=== PATIENT | female | born 1995 | race American Indian/Alaskan Native ===

== ENCOUNTER 2017-12-11 14:39 | Emergency (ER) | payer SELFPAY ==
[2017-12-11 14:58] VITALS: BP 121/78
[2017-12-11 15:20] LABS: HCG Qualitative,Urine Negative (Negative)
[2017-12-11 15:22] LABS: Bilirubin,Urine NEG (Negative); Blood,Urine NEG (Negative); Color,Urine Yellow (Yellow); Mucus,Urine 3+ /HPF; Protein,Urine <15 mg/dL mg/dL (Negative); Urobilinogen,Urine < 2.0 mg/dL (<2.0)
== END 2017-12-11 17:25 | disposition left against medical advice (07) ==
LOC: ED 14:39
DX: N93.9 Abnormal uterine and vaginal bleeding, unspecified (principal); Z53.21 Procedure and treatment not carried out due to patient leaving prior to being seen by health care provider
CPT/HCPCS: 81001; 81025

== ENCOUNTER 2019-10-28 01:55 | Emergency (ER) | payer SELFPAY ==
[2019-10-28] MEDS ORDERED: FAMOTIDINE 20 MG/2 ML INJ IV ONE (03:15)
[2019-10-28] MEDS ORDERED: MORPHINE 2 MG/1 ML INJ IV ONE (03:15)
[2019-10-28] MEDS ORDERED: ONDANSETRON 4 MG/2 ML INJ IV ONE ×2 (03:15→05:50)
[2019-10-28] MEDS ORDERED: SODIUM CHLORIDE 0.9% 1000 ML 1,000 ML IV ONE (03:16)
--- NOTE | 2019-10-28 03:47 | Emergency Department Report ---
ED Abdominal Pain HPI - General Chief Complaint: Abdominal Pain Stated Complaint: SEVERE ABDOMINAL PAIN/HEAVY DISCHARGE/SOB Source: patient Mode of arrival: Ambulatory Limitations: No Limitations - History of Present Illness Initial Comments: Patient is a A0 23-year-old -[place] female with no past medical history who presents to the ED with complaint of acute onset persistent diffuse abdominal pain for the last 1 week with nausea and which is worsened in the last 2 days. Patient states that in the last 6 hours she could not sleep because of persistent diffuse abdominal pain. Patient also complains of vaginal discharge and urinary frequency and urgency. Patient denies dizziness, syncope, diarrhea, vomiting, fever, chills, cough, sore throat, vaginal bleeding, dyspareunia, low back pain, chest pain or shortness of breath. MD Complaint: abdominal pain, other (Nausea ) -: Sudden, week(s) (1) Location: diffuse Radiation: none Migration to: no migration Severity: severe Severity scale (0 -10): 8 Quality: cramping, aching, sharp Consistency: constant Improves With: nothing Worsens With: nothing Associated Symptoms: denies other symptoms, nausea, anorexia - Related Data LMP (females 10-50): this week Previous Rx's Medication Instructions Recorded Last Taken Type Acetaminophen/Codeine [Tylenol 1 tab PO Q6H PRN #12 tab 10/28/19 Unknown Rx /Codeine # 3 tab] Doxycycline Hyclate 100 mg PO Q12H #20 tablet. 10/28/19 Unknown Rx Fluconazole (Nf) [Diflucan TAB] 150 mg PO ONCE #2 tablet 10/28/19 Unknown Rx Ketorolac [Toradol] 10 mg PO Q8H PRN #20 tablet 10/28/19 Unknown Rx Ondansetron [Zofran Odt] 4 mg PO Q6HR PRN #20 tab.rapdis 10/28/19 Unknown Rx cephALEXin [Keflex] 500 mg PO Q8HR #30 cap 10/28/19 Unknown Rx metroNIDAZOLE [Flagyl] 500 mg PO Q12HR #20 tab 10/28/19 Unknown Rx Allergies Allergy/AdvReac Type Severity Reaction Status Date / Time coconut oil Allergy Itching Verified 02/19/19 16:08 ED Review of Systems ROS: Stated complaint: SEVERE ABDOMINAL PAIN/HEAVY DISCHARGE/SOB Other details as noted in HPI Constitutional: denies: chills, fever Eyes: denies: eye pain, eye discharge, vision change ENT: denies: ear pain, throat pain Respiratory: denies: cough, shortness of breath, wheezing Cardiovascular: denies: chest pain, palpitations Endocrine: no symptoms reported Gastrointestinal: abdominal pain, nausea. denies: diarrhea Genitourinary: denies: urgency, dysuria, discharge Musculoskeletal: denies: back pain, joint swelling, arthralgia Skin: denies: rash, lesions Neurological: denies: headache, weakness, paresthesias Psychiatric: denies: anxiety, depression Hematological/Lymphatic: denies: easy bleeding, easy bruising ED Past Medical Hx - Past Medical History Previous Medical History?: No Hx Hypertension: No Hx Congestive Heart Failure: No Hx Diabetes: No Hx Deep Vein Thrombosis: No Hx Renal Disease: No Hx Sickle Cell Disease: No Hx Seizures: No Hx Asthma: No Hx COPD: No - Surgical History Past Surgical History?: No - Social History Smoking Status: Never Smoker Substance Use Type: Alcohol - Medications Home Medications: Home Medications Medication Instructions Recorded Confirmed Last Taken Type Acetaminophen/Codeine [Tylenol 1 tab PO Q6H PRN #12 tab 10/28/19 Unknown Rx /Codeine # 3 tab] Doxycycline Hyclate 100 mg PO Q12H #20 tablet. 10/28/19 Unknown Rx Fluconazole (Nf) [Diflucan TAB] 150 mg PO ONCE #2 tablet 10/28/19 Unknown Rx Ketorolac [Toradol] 10 mg PO Q8H PRN #20 tablet 10/28/19 Unknown Rx Ondansetron [Zofran Odt] 4 mg PO Q6HR PRN #20 tab.rapdis 10/28/19 Unknown Rx cephALEXin [Keflex] 500 mg PO Q8HR #30 cap 10/28/19 Unknown Rx metroNIDAZOLE [Flagyl] 500 mg PO Q12HR #20 tab 10/28/19 Unknown Rx ED Physical Exam - General Limitations: No Limitations General appearance: alert, in no apparent distress - Head Head exam: Present: atraumatic, normocephalic, normal inspection - Eye Eye exam: Present: normal appearance, PERRL, EOMI Pupils: Present: normal accommodation - ENT ENT exam: Present: normal exam, normal orophraynx, mucous membranes moist, TM's normal bilaterally, normal external ear exam - Neck Neck exam: Present: normal inspection, full ROM. Absent: tenderness - Respiratory Respiratory exam: Present: normal lung sounds bilaterally. Absent: respiratory distress, wheezes, rales, chest wall tenderness, accessory muscle use - Cardiovascular Cardiovascular Exam: Present: regular rate, normal rhythm, normal heart sounds. Absent: systolic murmur, diastolic murmur, rubs, gallop - GI/Abdominal GI/Abdominal exam: Present: soft, tenderness (Palpable diffuse abdominal tenderness with no guarding or rebound), normal bowel sounds. Absent: guarding, rebound, hyperactive bowel sounds - Extremities Exam Extremities exam: Present: normal inspection, full ROM, normal capillary refill - Back Exam Back exam: Present: normal inspection, full ROM. Absent: tenderness, CVA tenderness (R), muscle spasm, paraspinal tenderness, vertebral tenderness - Neurological Exam Neurological exam: Present: alert, oriented X3, CN II-XII intact, normal gait, reflexes normal - Psychiatric Psychiatric exam: Present: normal affect, normal mood - Skin Skin exam: Present: warm, dry, intact, normal color. Absent: rash ED Course Vital Signs 10/28/19 10/28/19 03:51 04:21 Respiratory 16 16 Rate ED Medical Decision Making - Lab Data Result diagrams: 10/28/19 03:30 10/28/19 03:30 - Radiology Data Radiology results: report reviewed, [place] [address] Cat Scan Report Signed Patient: CECI BUSTILLO MR#: [id number] : 1995 Acct:[id number] Age/Sex: 23 / F ADM Date: 10/28/19 Loc: ED Attending Dr: Ordering Physician: CORY ZABALA Date of Service: 10/28/19 Procedure(s): CT abdomen pelvis w con Accession Number(s): [id number] cc: CORY ZABALA CT ABDOMEN AND PELVIS WITH IV CONTRAST INDICATION: Pt complains of GENERALIZED abdominal pain.. COMPARISON: None available. TECHNIQUE: Axial CT images were obtained through the abdomen and pelvis after 100 mL IV contrast. All CT scans at this location are performed using CT dose reduction for ALARA by means of automated exposure control. FINDINGS -- ABDOMEN: Lung Bases: Ill-defined densities within the left lower lung. Liver: Normal. Gallbladder: Normal. Bile Ducts: Normal. Pancreas: Normal. Spleen: Normal. Adrenals: Normal. Right Kidney and Proximal Ureter: Normal. Left Kidney and Proximal Ureter: Normal. Stomach and Bowel: Normal. Lymph Nodes: No significant adenopathy. Aorta: No significant abnormality. IVC: Normal. Additional Findings: None. FINDINGS -- PELVIS: Urinary Bladder and Distal Ureters: Significant urinary bladder wall thickening.. Reproductive Organs: 3 x 2 cm cyst arising from the left ovary.. Appendix: Normal. Bowel: No acute abnormality. Free Fluid: Small free pelvic fluid.. Lymph Nodes: No significant adenopathy. Additional Findings: None. Skeletal System: No acute abnormality. IMPRESSION: 1. Significant urinary bladder wall thickening is suspicious for possible underlying cystitis 2. 3 x 2 cm mildly complex cyst arising from the left ovary with small free pelvic fluid, probably physiologic. Signer Name: Cricket Cheng MD Signed: 10/28/2019 5:20 AM Workstation Name: [id number] Transcribed By: BC Dictated By: Cricket Cheng MD Electronically Authenticated By: Cricket Cheng MD Signed Date/Time: 10/28/19519 DD/ 6 TD/TT: - Medical Decision Making This is a A0 23-year-old -[place] female with no past medical history who presents to the ED with complaint of acute onset persistent diffuse abdominal pain for the last 1 week with nausea and which is worsened in the last 2 days. Patient states that in the last 6 hours she could not sleep because of persistent diffuse abdominal pain. Patient also complains of vaginal discharge and urinary frequency and urgency. In the ED, patient is alert and oriented x3 and is not in any distress. Patient was treated for pain in the ED, also treated for nausea, given antacids and also given normal saline 1 L IV bolus x1. Lab test results were reviewed and are all nonactionable. Pelvic exam is positive for cervical motion tenderness and bilateral adnexal tenderness with yellowish vaginal discharge. Patient also received Rocephin 1 g IV empirically for PID and cystitis. Abdomen pelvis CT scan with contrast showed significant urinary bladder wall thickening is suspicious for possible underlying cystitis and a 3 x 2 cm mildly complex cyst arising from the left ovary with small free pelvic fluid, probably physiologic. On reevaluation, patient's pain is well controlled with medications. Patient will discharge home on medications including antibiotics for cystitis, PID and bacterial vaginosis. Patient was advised to follow-up with her primary care physician in 7 to 10 days for reevaluation. Patient was also advised return to the ED immediately if symptoms get worse. - Differential Diagnosis UTI; PID; OVARIAN CYST; APPENDICITIS; Cholecystitis; GERD Critical care attestation.: If time is entered above; I have spent that time in minutes in the direct care of this critically ill patient, excluding procedure time. ED Disposition Clinical Impression: Acute pelvic inflammatory disease (PID), Left ovarian cyst, Bacterial vaginosis Abdominal pain Qualifiers: Abdominal location: generalized Qualified Code(s): R10.84 - Generalized abdominal pain Acute cystitis Qualifiers: Hematuria presence: without hematuria Qualified Code(s): N30.00 - Acute cystitis without hematuria Disposition: TO HOME OR SELFCARE Is pt being admited?: No Does the pt Need Aspirin: No Condition: Stable Instructions: Abdominal Pain (ED), Pelvic Inflammatory Disease (ED), Ovarian Cyst (ED), Bacterial Vaginosis (ED) Additional Instructions: Take medication with food, drink plenty of fluids and follow-up with your primary care physician in 7 to 10 days for reevaluation. Return to the ED immediately if symptoms get worse. Prescriptions: Fluconazole (Nf) [Diflucan TAB] 150 mg PO ONCE #2 tablet Doxycycline Hyclate 100 mg PO Q12H #20 tablet. metroNIDAZOLE [Flagyl] 500 mg PO Q12HR #20 tab cephALEXin [Keflex] 500 mg PO Q8HR #30 cap Ketorolac [Toradol] 10 mg PO Q8H PRN #20 tablet PRN Reason: Pain Acetaminophen/Codeine [Tylenol /Codeine # 3 tab] 1 tab PO Q6H PRN #12 tab PRN Reason: Pain , Severe (7-10) Ondansetron [Zofran Odt] 4 mg PO Q6HR PRN #20 tab.rapdis PRN Reason: Nausea Referrals: [facility] [Provider Group] - 7-10 days Forms: STI Treatment and Prevention Time of Disposition: 06:12 Print Language: NICARAGUAN
[2019-10-28 04:02] LABS: Mucus,Urine 1+ /HPF
[2019-10-28 04:03] LABS: Bilirubin,Urine NEG (Negative); Blood,Urine SM (Negative); Color,Urine Yellow (Yellow); Protein,Urine <15 mg/dL mg/dL (Negative)
[2019-10-28 04:04] LABS: HCG Qualitative,Urine Negative (Negative)
[2019-10-28 04:09] LABS: Basophils # (Auto) 0.2 K/mm3 (0.0-0.1); Basophils % (Auto) 2.7 % (0.0-1.8); Eosinophils % (Auto) 0.4 % (0.0-4.3); Hematocrit 38.8 % (30.3-42.9); Hemoglobin 13.4 gm/dl (10.1-14.3); Lymphocytes # (Auto) 0.5 K/mm3 (1.2-5.4); Lymphocytes % (Auto) 7.7 % (13.4-35.0); Mean Corpuscular HGB Conc 34 % (30-34); Mean Corpuscular Volume 92 fl (79-97); Monocytes # (Auto) 0.8 K/mm3 (0.0-0.8); Monocytes % (Auto) 12.2 % (0.0-7.3); Platelet Count 180 K/mm3 (140-440); Red Blood Count 4.21 M/mm3 (3.65-5.03)
[2019-10-28 04:19] LABS: Alanine Aminotransferase 10 units/L (7-56); Albumin 4.4 g/dL (3.9-5); BUN/Creatinine Ratio 12; Blood Urea Nitrogen 11 mg/dL (7-17); Calcium 9.3 mg/dL (8.4-10.2); Hemolysis Index 5
--- NOTE | 2019-10-28 05:24 | Cat Scan Report ---
CT ABDOMEN AND PELVIS WITH IV CONTRAST INDICATION: Pt complains of GENERALIZED abdominal pain.. COMPARISON: None available. TECHNIQUE: Axial CT images were obtained through the abdomen and pelvis after 100 mL IV contrast. All CT scans a t this location are performed using CT dose reduction for ALARA by means of automated exposure contro l. FINDINGS -- ABDOMEN: Lung Bases: Ill-defined densities within the left lower lung. Liver: Normal. Gallbladder: Normal. Bile Ducts: Normal. Pancreas: Normal. Spleen: Normal. Adrenals: Normal. Right Kidney and Proximal Ureter: Normal. Left Kidney and Proximal Ureter: Normal. Stomach and Bowel: Normal. Lymph Nodes: No significant adenopathy. Aorta: No significant abnormality. IVC: Normal. Additional Findings: None. FINDINGS -- PELVIS: Urinary Bladder and Distal Ureters: Significant urinary bladder wall thickening.. Reproductive Organs: 3 x 2 cm cyst arising from the left ovary.. Appendix: Normal. Bowel: No acute abnormality. Free Fluid: Small free pelvic fluid.. Lymph Nodes: No significant adenopathy. Additional Findings: None. Skeletal System: No acute abnormality. IMPRESSION: 1. Significant urinary bladder wall thickening is suspicious for possible underlying cystitis 2. 3 x 2 cm mildly complex cyst arising from the left ovary with small free pelvic fluid, probably ph ysiologic. Signer Name: Cricket Cheng MD Signed: 10/28/2019 5:20 AM Workstation Name: [id number]
[2019-10-28] MEDS ORDERED: KETOROLAC 30 MG/1 ML INJ IV ONE (05:49)
[2019-10-28] MEDS ORDERED: cefTRIAXone/NS 1 GM/50 ML 1 GM/50 ML BAG IV ONE (05:50)
[2019-10-28 06:55] VITALS: BP 122/58
== END 2019-10-28 06:58 | disposition home or self-care (01) ==
LOC: ED 01:55
DX: N76.0 Acute vaginitis (principal); B96.89 Other specified bacterial agents as the cause of diseases classified elsewhere; N73.8 Other specified female pelvic inflammatory diseases; N83.292 Other ovarian cyst, left side; N39.0 Urinary tract infection, site not specified
CPT/HCPCS: 36415; 74177; 80053; 81001; 81025; 83690; 85025; 87210; 96365; 96375; 96376; 99284; J0696; J1885; J2270; J2405; J7030; Q9967

== ENCOUNTER 2020-03-29 19:13 | Emergency (ER) | payer SELFPAY ==
[2020-03-29 20:52] VITALS: BP 104/62
--- NOTE | 2020-03-29 21:30 | Emergency Department Report ---
ED Fall HPI - General Chief Complaint: Fall Stated Complaint: DIZZY, BLURRED VISION, ABDOMINAL/BACK PAIN Time Seen by Provider: 03/29/20 21:09 Source: patient Mode of arrival: Ambulatory - History of Present Illness Initial Comments: Patient is 24 years old female with no significant past medical history. Patient presented to the ER for evaluation after a fall that happened 3 days ago. Patient stated that she was going down a stair and missed a step and fell down approximately 3 steps. Patient denied any head injury. Patient is complaining of neck pain, lower back pain and chest pain mainly to the left lower chest. Patient denied any loss of consciousness, weakness numbness or tingling sensation. 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 10/28/19 Unknown Rx Fluconazole (Nf) [Diflucan TAB] 150 mg PO ONCE #2 tablet 10/28/19 Unknown Rx Ketorolac [Toradol] 10 mg PO Q8H PRN #20 tablet 10/28/19 Unknown Rx Ondansetron [Zofran Odt] 4 mg PO Q6HR PRN #20 tab.rapdis 10/28/19 Unknown Rx cephALEXin [Keflex] 500 mg PO Q8HR #30 cap 10/28/19 Unknown Rx metroNIDAZOLE [Flagyl] 500 mg PO Q12HR #20 tab 10/28/19 Unknown Rx Allergies Allergy/AdvReac Type Severity Reaction Status Date / Time coconut oil Allergy Itching Verified 02/19/19 16:08 ED Review of Systems ROS: Stated complaint: DIZZY, BLURRED VISION, ABDOMINAL/BACK PAIN Other details as noted in HPI Comment: All other systems reviewed and negative Constitutional: denies: chills, fever Respiratory: denies: cough, shortness of breath, SOB with exertion Cardiovascular: denies: chest pain, palpitations Gastrointestinal: denies: abdominal pain, nausea, vomiting Musculoskeletal: back pain, arthralgia, myalgia Neurological: denies: headache, weakness, numbness, paresthesias, confusion, abnormal gait ED Past Medical Hx - Past Medical History Previous Medical History?: No Hx Hypertension: No Hx Congestive Heart Failure: No Hx Diabetes: No Hx Deep Vein Thrombosis: No Hx Renal Disease: No Hx Sickle Cell Disease: No Hx Seizures: No Hx Asthma: No Hx COPD: No - Surgical History Past Surgical History?: No - Social History Smoking Status: Never Smoker Substance Use Type: None - Medications Home Medications: Home Medications Medication Instructions Recorded Confirmed Last Taken Type Acetaminophen/Codeine [Tylenol 1 tab PO Q6H PRN #12 tab 10/28/19 Unknown Rx /Codeine # 3 tab] Doxycycline Hyclate 100 mg PO Q12H #20 tablet. 10/28/19 Unknown Rx Fluconazole (Nf) [Diflucan TAB] 150 mg PO ONCE #2 tablet 10/28/19 Unknown Rx Ketorolac [Toradol] 10 mg PO Q8H PRN #20 tablet 10/28/19 Unknown Rx Ondansetron [Zofran Odt] 4 mg PO Q6HR PRN #20 tab.rapdis 10/28/19 Unknown Rx cephALEXin [Keflex] 500 mg PO Q8HR #30 cap 10/28/19 Unknown Rx metroNIDAZOLE [Flagyl] 500 mg PO Q12HR #20 tab 10/28/19 Unknown Rx ED Physical Exam - General Limitations: No Limitations General appearance: alert, in no apparent distress - Head Head exam: Present: atraumatic, normocephalic, normal inspection - Eye Eye exam: Present: normal appearance, PERRL - ENT ENT exam: Present: normal exam, normal orophraynx, mucous membranes moist - Neck Neck exam: Present: normal inspection, full ROM. Absent: tenderness, meningismus - Respiratory Respiratory exam: Present: normal lung sounds bilaterally, chest wall tenderness - Cardiovascular Cardiovascular Exam: Present: regular rate, normal rhythm, normal heart sounds - GI/Abdominal GI/Abdominal exam: Present: soft, normal bowel sounds. Absent: distended, tenderness, guarding, rebound, rigid, organomegaly, mass, bruit, pulsatile mass, hernia - Extremities Exam Extremities exam: Present: normal inspection, full ROM, normal capillary refill. Absent: pedal edema, calf tenderness - Back Exam Back exam: Present: normal inspection, full ROM. Absent: CVA tenderness (R), CVA tenderness (L) - Neurological Exam Neurological exam: Present: alert, oriented X3, CN II-XII intact - Psychiatric Psychiatric exam: Present: normal mood - Skin Skin exam: Present: warm, intact, normal color ED Course Vital Signs 03/29/20 03/29/20 20:26 20:46 Temperature 100.0 F H 98 F Pulse Rate 110 H 109 H Respiratory 17 16 Rate Blood Pressure 104/62 Blood Pressure 105/68 [Left] O2 Sat by Pulse 97 98 Oximetry ED Medical Decision Making - Radiology Data Radiology results: report reviewed - Medical Decision Making Patient is 24 years old female with no significant past medical history. Patient presented to the ER for evaluation after a fall that happened 3 days ago. Patient stated that she was going down a stair and missed a step and fell down approximately 3 steps. Patient denied any head injury. Patient is complaining of neck pain, lower back pain and chest pain mainly to the left lower chest. Patient denied any loss of consciousness, weakness numbness or tingling sensation. Patient received Toradol 60 mg IM for pain. X-ray of the cervical spine, lumbar sacral spine and chest x-ray is unremarkable. Patient given prescription for tramadol and advised to follow-up with her primary doctor in the next 2 to 3 days and to return to the ER if she develop any new symptoms. Critical care attestation.: If time is entered above; I have spent that time in minutes in the direct care of this critically ill patient, excluding procedure time. ED Disposition Clinical Impression: Fall, Acute neck pain, Acute back pain Disposition: - TO HOME OR SELFCARE Is pt being admited?: No Condition: Stable Instructions: Acute Low Back Pain (ED), Cervical Sprain (ED) Referrals: PRIMARY CARE,MD [Primary Care Provider] - 3-5 Days
--- NOTE | 2020-03-29 22:35 | XRay Report ---
CHEST 2 VIEWS INDICATION / CLINICAL INFORMATION: chest pain. COMPARISON: None available. FINDINGS: SUPPORT DEVICES: None. HEART / MEDIASTINUM: No significant abnormality. LUNGS / PLEURA: No significant pulmonary or pleural abnormality. No pneumothorax. ADDITIONAL FINDINGS: No significant additional findings. IMPRESSION: 1. No acute findings. Signer Name: Severino Carter MD Signed: 03/29/2020 10:31 PM Workstation Name: [id number]
--- NOTE | 2020-03-29 22:35 | XRay Report ---
LUMBAR SPINE 2 VIEWS INDICATION / CLINICAL INFORMATION: BACK INJURY. COMPARISON: None available. FINDINGS: VERTEBRAE: No acute fracture. No significant malalignment. DISC SPACES / FACET JOINTS:No significant abnormality. PARASPINAL SOFT TISSUES:No significant abnormality. ADDITIONAL FINDINGS: None. Signer Name: Severino Carter MD Signed: 03/29/2020 10:30 PM Workstation Name: [id number]
--- NOTE | 2020-03-29 22:40 | XRay Report ---
CERVICAL SPINE 4 VIEWS INDICATION / CLINICAL INFORMATION: neck injury. COMPARISON: None available. FINDINGS: VERTEBRAE: No acute fracture. No significant malalignment. DISC SPACES / FACET JOINTS:No significant abnormality. PARASPINAL SOFT TISSUES:No significant abnormality. ADDITIONAL FINDINGS: None. Signer Name: Severino Carter MD Signed: 03/29/2020 10:35 PM Workstation Name: [id number]
[2020-03-29] MEDS ORDERED: KETOROLAC 60 MG/2 ML INJ IM ONE (22:46)
== END 2020-03-30 01:15 | disposition home or self-care (01) ==
LOC: ED 19:13
DX: M54.2 Cervicalgia (principal); M54.5 Low back pain; R07.89 Other chest pain; W19.XXXA Unspecified fall, initial encounter; Y93.89 Activity, other specified; Y92.89 Other specified places as the place of occurrence of the external cause; Y99.8 Other external cause status
CPT/HCPCS: 71046; 72040; 72100; 96372; 99283; J1885

== ENCOUNTER 2020-06-13 11:27 | Inpatient (IN) | payer OTHER ==
--- NOTE | 2020-06-13 11:51 | Event Note ---
ED Screening Note ED Screening Note: right upper and lower abd pain that began two days ago states she ate from her neighbor +n/v no diarrhea no dysuria pmhx ovarian cyst allergy: none LNMP: 06/09/20 This initial assessment/diagnostic orders/clinical plan/treatment(s) is/are subject to change based on patients health status, clinical progression and re- assessment by fellow clinical providers in the ED. Further treatment and workup at subsequent clinical providers discretion. Patient/guardian urged not to elope from the ED as their condition may be serious if not clinically assessed and managed. Initial orders include: labs, UA
[2020-06-13 12:25] LABS: Alanine Aminotransferase 6 units/L (7-56); BUN/Creatinine Ratio 6; Blood Urea Nitrogen 5 mg/dL (7-17); Hemolysis Index 5
[2020-06-13 12:29] LABS: Basophils % (Auto) 0.3 % (0.0-1.8); Eosinophils % (Auto) 0.1 % (0.0-4.3); Hematocrit 39.6 % (30.3-42.9); Lymphocytes # (Auto) 0.8 K/mm3 (1.2-5.4); Mean Corpuscular HGB Conc 33 % (30-34); Mean Corpuscular Volume 90 fl (79-97); Monocytes # (Auto) 1.1 K/mm3 (0.0-0.8); Monocytes % (Auto) 8.9 % (0.0-7.3); Platelet Count 238 K/mm3 (140-440); Red Blood Count 4.39 M/mm3 (3.65-5.03); Red Cell Distribution Width 15.3 % (13.2-15.2)
[2020-06-13] MEDS ORDERED: SODIUM CHLORIDE 0.9% 1000 ML 1,000 ML IV ONE ×2 (12:35→15:22)
[2020-06-13] MEDS ORDERED: ONDANSETRON 4 MG/2 ML INJ IV ONE (12:41)
[2020-06-13] MEDS ORDERED: MORPHINE 4 MG/1 ML INJ IV ONE (12:41)
--- NOTE | 2020-06-13 12:41 | Emergency Department Report ---
HPI - General Chief Complaint: Abdominal Pain Time Seen by Provider: 06/13/20 11:50 - HPI HPI: This is a 24-year-old -[place] female who presents to the emergency department with complaint of chills, nausea with vomiting, and right-sided abdominal pain. Overall the patient says that this has been going on since October but occurs intermittently. This recent episode or exacerbation has been going on for the past 2 days. The patient says that she has been taking some Motrin without any relief, but has not taken anything yet this morning. The patient also says that she has intermittent episodes in which she passes out. She says that she has a history of anemia that was diagnosed when she had her son 5 years ago but is unsure whether she required any transfusions. No recent travel or sick contacts at home. No known exposure to anyone with COVID-19. The patient says that she was seen here in October of last year for some similar issues regarding her abdomen but could not recall what the diagnosis was. She says that the medications given at that time made her more sick. In reviewing her records, it appears that she was diagnosed with PID and a left ovarian cyst and was placed on doxycycline, Flagyl, and antiemetics. ED Past Medical Hx - Past Medical History Previous Medical History?: Yes Hx Hypertension: No Hx Congestive Heart Failure: No Hx Diabetes: No Hx Deep Vein Thrombosis: No Hx Renal Disease: No Hx Sickle Cell Disease: No Hx Seizures: No Hx Asthma: No Hx COPD: No Additional medical history: Abd pain - Surgical History Past Surgical History?: No - Social History Smoking Status: Current Every Day Smoker Substance Use Type: Alcohol, Marijuana - Medications Home Medications: Home Medications Medication Instructions Recorded Confirmed Last Taken Type Acetaminophen/Codeine [Tylenol 1 tab PO Q6H PRN #12 tab 10/28/19 Unknown Rx /Codeine # 3 tab] Doxycycline Hyclate 100 mg PO Q12H #20 tablet. 10/28/19 Unknown Rx Fluconazole (Nf) [Diflucan TAB] 150 mg PO ONCE #2 tablet 10/28/19 Unknown Rx Ketorolac [Toradol] 10 mg PO Q8H PRN #20 tablet 10/28/19 Unknown Rx Ondansetron [Zofran Odt] 4 mg PO Q6HR PRN #20 tab.rapdis 10/28/19 Unknown Rx cephALEXin [Keflex] 500 mg PO Q8HR #30 cap 10/28/19 Unknown Rx metroNIDAZOLE [Flagyl] 500 mg PO Q12HR #20 tab 10/28/19 Unknown Rx Ondansetron [Zofran Odt] 4 mg PO Q8HR PRN #14 tab.rapdis 03/29/20 Unknown Rx traMADoL [Ultram 50 MG tab] 50 mg PO Q4HR PRN #14 tablet 03/29/20 Unknown Rx ED Review of Systems ROS: Stated complaint: FAINT/ABD PAIN Other details as noted in HPI Comment: All other systems reviewed and negative Constitutional: chills, fever. denies: diaphoresis Eyes: denies: eye pain, vision change ENT: denies: ear pain, throat pain Respiratory: denies: cough, shortness of breath Cardiovascular: denies: chest pain, palpitations Gastrointestinal: abdominal pain, nausea, vomiting Genitourinary: denies: dysuria, discharge, abnormal menses Musculoskeletal: back pain. denies: arthralgia Skin: denies: rash, lesions Neurological: denies: headache, numbness Physical Exam - Physical Exam Vital Signs: Vital Signs 06/13/20 11:44 Temperature 100.1 F H Pulse Rate 98 H Respiratory 20 Rate Blood Pressure 112/57 O2 Sat by Pulse 99 Oximetry Physical Exam: GENERAL: The patient is well-developed well-nourished. HENT: Normocephalic. Atraumatic. Patient has moist mucous membranes. EYES: Extraocular motions are intact. NECK: Supple. Trachea is midline. CHEST/LUNGS: Clear to auscultation. There is no respiratory distress noted. HEART/CARDIOVASCULAR: Regular. There is no tachycardia. There is no murmur. ABDOMEN: Abdomen is soft. Right-sided abdominal tenderness to palpation. No guarding. Patient has normal bowel sounds. There is no abdominal distention. SKIN: Skin is warm and dry. NEURO: The patient is awake, alert, and oriented. The patient is cooperative. The patient has no focal neurologic deficits. Normal speech. MUSCULOSKELETAL: There is no tenderness or deformity. There is no limitation range of motion. BACK: There is right-sided CVA tenderness to palpation. ED Course Vital Signs 06/13/20 11:44 Temperature 100.1 F H Pulse Rate 98 H Respiratory 20 Rate Blood Pressure 112/57 O2 Sat by Pulse 99 Oximetry ED Medical Decision Making - Lab Data Result diagrams: 06/13/20 11:54 06/13/20 11:54 Lab Results 06/13/20 06/13/20 06/13/20 Range/Units 11:54 11:54 11:54 WBC 12.1 H (4.5-11.0) K/mm3 RBC 4.39 (3.65-5.03) M/mm3 Hgb 13.0 (10.1-14.3) gm/dl Hct 39.6 (30.3-42.9) % MCV 90 (79-97) fl MCH 30 (28-32) pg MCHC 33 (30-34) % RDW 15.3 H (13.2-15.2) % Plt Count 238 (140-440) K/mm3 Lymph % (Auto) 7.0 L (13.4-35.0) % Casey % (Auto) 8.9 H (0.0-7.3) % Eos % (Auto) 0.1 (0.0-4.3) % Baso % (Auto) 0.3 (0.0-1.8) % Lymph # (Auto) 0.8 L (1.2-5.4) K/mm3 [place] # (Auto) 1.1 H (0.0-0.8) K/mm3 Eos # (Auto) 0.0 (0.0-0.4) K/mm3 Baso # (Auto) 0.0 (0.0-0.1) K/mm3 Seg Neutrophils % 83.7 H (40.0-70.0) % Seg Neutrophils # 10.1 H (1.8-7.7) K/mm3 Sodium 134 L (137-145) mmol/L Potassium 3.9 (3.6-5.0) mmol/L Chloride 99.7 (98-107) mmol/L Carbon Dioxide 25 (22-30) mmol/L Anion Gap 13 mmol/L BUN 5 L (7-17) mg/dL Creatinine 0.8 (0.6-1.2) mg/dL Estimated GFR > 60 ml/min BUN/Creatinine Ratio 6 % Glucose 117 H (65-100) mg/dL Lactic Acid (0.7-2.0) mmol/L Calcium 9.0 (8.4-10.2) mg/dL Total Bilirubin 0.40 (0.1-1.2) mg/dL AST 11 (5-40) units/L ALT 6 L (7-56) units/L Alkaline Phosphatase 68 (35-129) units/L Total Protein 7.5 (6.3-8.2) g/dL Albumin 4.0 (3.9-5) g/dL Albumin/Globulin Ratio 1.1 % Lipase 12 L (13-60) units/L HCG, Qual Negative (Negative) Urine Color (Yellow) Urine Turbidity (Clear) Urine pH (5.0-7.0) Ur Specific [place] (1.003-1.030) Urine Protein (Negative) mg/dL Urine Glucose (UA) (Negative) mg/dL Urine Ketones (Negative) mg/dL Urine Blood (Negative) Urine Nitrite (Negative) Urine Bilirubin (Negative) Urine Urobilinogen (<2.0) mg/dL Ur Leukocyte Esterase (Negative) Urine WBC (Auto) (0.0-6.0) /HPF Urine RBC (Auto) (0.0-6.0) /HPF U Epithel Cells (Auto) (0-13.0) /HPF Urine Bacteria (Auto) (Negative) /HPF Urine Mucus /HPF 06/13/20 06/13/20 Range/Units 13:07 14:01 WBC (4.5-11.0) K/mm3 RBC (3.65-5.03) M/mm3 Hgb (10.1-14.3) gm/dl Hct (30.3-42.9) % MCV (79-97) fl MCH (28-32) pg MCHC (30-34) % RDW (13.2-15.2) % Plt Count (140-440) K/mm3 Lymph % (Auto) (13.4-35.0) % Casey % (Auto) (0.0-7.3) % Eos % (Auto) (0.0-4.3) % Baso % (Auto) (0.0-1.8) % Lymph # (Auto) (1.2-5.4) K/mm3 Casey # (Auto) (0.0-0.8) K/mm3 Eos # (Auto) (0.0-0.4) K/mm3 Baso # (Auto) (0.0-0.1) K/mm3 Seg Neutrophils % (40.0-70.0) % Seg Neutrophils # (1.8-7.7) K/mm3 Sodium (137-145) mmol/L Potassium (3.6-5.0) mmol/L Chloride (98-107) mmol/L Carbon Dioxide (22-30) mmol/L Anion Gap mmol/L BUN (7-17) mg/dL Creatinine (0.6-1.2) mg/dL Estimated GFR ml/min BUN/Creatinine Ratio % Glucose (65-100) mg/dL Lactic Acid 1.10 (0.7-2.0) mmol/L Calcium (8.4-10.2) mg/dL Total Bilirubin (0.1-1.2) mg/dL AST (5-40) units/L ALT (7-56) units/L Alkaline Phosphatase (35-129) units/L Total Protein (6.3-8.2) g/dL Albumin (3.9-5) g/dL Albumin/Globulin Ratio % Lipase (13-60) units/L HCG, Qual (Negative) Urine Color Yellow (Yellow) Urine Turbidity Slightly-cloudy (Clear) Urine pH 6.0 (5.0-7.0) Ur Specific [place] 1.017 (1.003-1.030) Urine Protein 100 mg/dl (Negative) mg/dL Urine Glucose (UA) Neg (Negative) mg/dL Urine Ketones Neg (Negative) mg/dL Urine Blood Mod (Negative) Urine Nitrite Neg (Negative) Urine Bilirubin Neg (Negative) Urine Urobilinogen 2.0 (<2.0) mg/dL Ur Leukocyte Esterase Sm (Negative) Urine WBC (Auto) 66.0 H (0.0-6.0) /HPF Urine RBC (Auto) 69.0 (0.0-6.0) /HPF U Epithel Cells (Auto) 6.0 (0-13.0) /HPF Urine Bacteria (Auto) 1+ (Negative) /HPF Urine Mucus 2+ /HPF - Radiology Data Radiology results: report reviewed CT ABDOMEN AND PELVIS WITH IV CONTRAST INDICATION: right sided abdominal pain. COMPARISON: CT 10/28/2019 TECHNIQUE: All CT scans at this facility use dose modulation, automated exposure control, iterative reconstruction or weight based dosing, when appropriate, to reduce radiation dose to as low as reasonably achievable. FINDINGS: Lung Bases: No significant abnormality. Skeletal System: No acute abnormality. ABDOMEN: Liver: No significant abnormality. Gallbladder: No significant abnormality. Bile Ducts: No significant abnormality. Pancreas: No significant abnormality. Spleen: No significant abnormality. Adrenals: No significant abnormality. Right Kidney: There are several somewhat wedge-shaped ill-defined hypodensities in the cortex of the right kidney. Left Kidney: There are a few subtle ill-defined cortical hypodensities laterally. These are new since the prior. Upper GI tract: No significant abnormality. Lymph Nodes: No significant adenopathy. Aorta: No significant abnormality. Additional Findings: No significant abnormality. PELVIS: Colon: No acute abnormality. Urinary Bladder and Distal Ureters: There is bladder wall thickening. Appendix: No significant abnormality. Lymph Nodes: No significant adenopathy. Additional Findings: Mild free fluid in the cul-de-sac is likely physiologic. IMPRESSION: 1. Acute bilateral pyelonephritis, right greater than left. Cystitis is noted. No hydronephrosis. - Medical Decision Making This patient presents with a low-grade fever, nausea and vomiting, right-sided abdominal pain with some radiation to the flank and back. The blood work is mo stly unremarkable except for a very mild leukocytosis. Urinalysis shows a urinary tract infection with some hematuria. The patient does admit to being on her menstrual cycle. CT scan of the abdomen and pelvis with IV contrast shows bilateral pyelonephritis with right greater than left. The patient has received IV analgesia without any improvement. Blood and urine cultures have been sent and the patient has been started on antibiotics. She will be admitted to the hospital for further evaluation and treatment and was accepted for admission by the hospitalist, Dr. Madsen. Critical Care Time: No Critical care attestation.: If time is entered above; I have spent that time in minutes in the direct care of this critically ill patient, excluding procedure time. ED Disposition Clinical Impression: Pyelonephritis, Intractable abdominal pain UTI (urinary tract infection) Qualifiers: Urinary tract infection type: acute cystitis Hematuria presence: with hematuria Qualified Code(s): N30.01 - Acute cystitis with hematuria Disposition: OP ADMIT IP TO THIS HOSP Is pt being admited?: Yes Condition: Serious Time of Disposition: 14:34
[2020-06-13] MEDS ORDERED: ACETAMINOPHEN 325 MG TAB PO ONE (13:24)
[2020-06-13 13:37] LABS: Bacteria,Urine 1+ /HPF (Negative); Bilirubin,Urine NEG (Negative); Blood,Urine MOD (Negative); Color,Urine Yellow (Yellow); Mucus,Urine 2+ /HPF
[2020-06-13] MEDS ORDERED: cefTRIAXone/NS 1 GM/50 ML 1 GM/50 ML BAG IV ONE (13:40)
--- NOTE | 2020-06-13 13:46 | Cat Scan Report ---
CT ABDOMEN AND PELVIS WITH IV CONTRAST INDICATION: right sided abdominal pain. COMPARISON: CT 10/28/2019 TECHNIQUE: All CT scans at this facility use dose modulation, automated exposure control, iterative reconstructi on or weight based dosing, when appropriate, to reduce radiation dose to as low as reasonably achieva ble. FINDINGS: Lung Bases: No significant abnormality. Skeletal System: No acute abnormality. ABDOMEN: Liver: No significant abnormality. Gallbladder: No significant abnormality. Bile Ducts: No significant abnormality. Pancreas: No significant abnormality. Spleen: No significant abnormality. Adrenals: No significant abnormality. Right Kidney: There are several somewhat wedge-shaped ill-defined hypodensities in the cortex of the right kidney. Left Kidney: There are a few subtle ill-defined cortical hypodensities laterally. These are new since the prior. Upper GI tract: No significant abnormality. Lymph Nodes: No significant adenopathy. Aorta: No significant abnormality. Additional Findings: No significant abnormality. PELVIS: Colon: No acute abnormality. Urinary Bladder and Distal Ureters: There is bladder wall thickening. Appendix: No significant abnormality. Lymph Nodes: No significant adenopathy. Additional Findings: Mild free fluid in the cul-de-sac is likely physiologic. IMPRESSION: 1. Acute bilateral pyelonephritis, right greater than left. Cystitis is noted. No hydronephrosis. Signer Name: Adriel Torres MD Signed: 06/13/2020 1:42 PM Workstation Name: [id number]
[2020-06-13] MEDS: HYDROmorphone 1 MG/1 ML INJ IV PRN (17:47)
[2020-06-13] MEDS ORDERED: ONDANSETRON 4 MG ODT TAB PO PRN (21:22)
[2020-06-13] MEDS ORDERED: traMADol 50 MG TAB PO PRN (21:22)
[2020-06-13] MEDS ORDERED: METOCLOPRAMIDE 10 MG/2 ML INJ IV PRN (21:26)
[2020-06-13] MEDS ORDERED: ACETAMINOPHEN 325 MG TAB PO PRN (21:26)
--- NOTE | 2020-06-13 21:29 | History and Physical Report ---
History of Present Illness Date of examination: 06/06/20 Date of admission: 06/13/20 14:35 Chief complaint: Right flank pain for 2 to 3 days Fever for 3 days History of present illness: 23-year-old -[place]ales[place] female with no significant past medical history except for menorrhagia causing anemia comes in for right flank pain. Pain is about 8 on a scale of 1-10. Patient also complains of chills nausea and vomiting. Patient states that this has been going on since October and was occurring intermittently. This last exacerbation was going on for 2 days and patient has been taking Motrin with no relief. Since yesterday the pain is so severe sometimes. No cough. No recent exposure to coronavirus. No chest pain or shortness of breath. Patient has chronic anemia secondary to excessive menstrual bleeding - Past Medical History Previous Medical History?: Yes Anemia - Surgical History Past Surgical History?: No - Social History Smoking Status: Current Every Day Smoker Substance Use Type: Alcohol, Marijuana - Medications Home Medications: Home Medications Medication Instructions Recorded Confirmed Last Taken Type Acetaminophen/Codeine [Tylenol 1 tab PO Q6H PRN #12 tab 10/28/19 Unknown Rx /Codeine # 3 tab] Doxycycline Hyclate 100 mg PO Q12H #20 tablet. 10/28/19 Unknown Rx Fluconazole (Nf) [Diflucan TAB] 150 mg PO ONCE #2 tablet 10/28/19 Unknown Rx Ketorolac [Toradol] 10 mg PO Q8H PRN #20 tablet 10/28/19 Unknown Rx Ondansetron [Zofran Odt] 4 mg PO Q6HR PRN #20 tab.rapdis 10/28/19 Unknown Rx cephALEXin [Keflex] 500 mg PO Q8HR #30 cap 10/28/19 Unknown Rx metroNIDAZOLE [Flagyl] 500 mg PO Q12HR #20 tab 10/28/19 Unknown Rx Ondansetron [Zofran Odt] 4 mg PO Q8HR PRN #14 tab.rapdis 03/29/20 Unknown Rx traMADoL [Ultram 50 MG tab] 50 mg PO Q4HR PRN #14 tablet 03/29/20 Unknown Rx Review of Systems ROS: Stated complaint: Right flank pain and chills associated with nausea and vomiting. Other details as noted in HPI Comment: All other systems reviewed and negative Constitutional: chills, fever. denies: diaphoresis Eyes: denies: eye pain, vision change ENT: denies: ear pain, throat pain Respiratory: denies: cough, shortness of breath Cardiovascular: denies: chest pain, palpitations Gastrointestinal: abdominal pain, nausea, vomiting Genitourinary: Menorrhagia present. Musculoskeletal: back pain. denies: arthralgia Skin: denies: rash, lesions Neurological: denies: headache, numbness Medications and Allergies Allergies Allergy/AdvReac Type Severity Reaction Status Date / Time coconut oil Allergy Itching Verified 02/19/19 16:08 Home Medications Medication Instructions Recorded Confirmed Last Taken Type Acetaminophen/Codeine [Tylenol 1 tab PO Q6H PRN #12 tab 10/28/19 Unknown Rx /Codeine # 3 tab] Doxycycline Hyclate 100 mg PO Q12H #20 tablet. 10/28/19 Unknown Rx Fluconazole (Nf) [Diflucan TAB] 150 mg PO ONCE #2 tablet 10/28/19 Unknown Rx Ketorolac [Toradol] 10 mg PO Q8H PRN #20 tablet 10/28/19 Unknown Rx Ondansetron [Zofran Odt] 4 mg PO Q6HR PRN #20 tab.rapdis 10/28/19 Unknown Rx cephALEXin [Keflex] 500 mg PO Q8HR #30 cap 10/28/19 Unknown Rx metroNIDAZOLE [Flagyl] 500 mg PO Q12HR #20 tab 10/28/19 Unknown Rx Ondansetron [Zofran Odt] 4 mg PO Q8HR PRN #14 tab.rapdis 03/29/20 Unknown Rx traMADoL [Ultram 50 MG tab] 50 mg PO Q4HR PRN #14 tablet 03/29/20 Unknown Rx Active Meds: Active Medications Hydromorphone HCl (Hydromorphone 1 Mg/1 Ml Inj) 0.5 mg IV Q3H PRN PRN Reason: Pain , Severe (7-10) Last Admin: 06/13/20 17:47 Dose: 0.5 mg Documented by: Exam - Constitutional Vitals: Temp Pulse Resp BP Pulse Ox 98.6 F 92 H 20 136/76 99 06/13/20 17:30 06/13/20 17:30 06/13/20 17:30 06/13/20 17:30 06/13/20 17:30 General appearance: Present: mild distress (Secondary to pain), well-nourished - EENT Eyes: Present: PERRL ENT: hearing intact, clear oral mucosa - Neck Neck: Present: supple, normal ROM - Respiratory Respiratory effort: normal Respiratory: bilateral: CTA - Cardiovascular Heart rate: 98 Rhythm: regular Heart Sounds: Present: S1 & S2. Absent: rub, click - Extremities Extremities: pulses symmetrical, No edema Peripheral Pulses: within normal limits - Abdominal General gastrointestinal: Present: soft, tender, non-distended, normal bowel sounds Localized gastrointestinal: tender: diffuse (Right flank pain and tenderness and guarding), guarding: diffuse Female genitourinary: Present: normal - Rectal Rectal Exam: deferred - Integumentary Integumentary: Present: clear, warm, dry - Musculoskeletal Musculoskeletal: gait normal, strength equal bilaterally - Psychiatric Psychiatric: appropriate mood/affect, intact judgment & insight - Neurologic Neurologic: CNII-XII intact, moves all extremities - Allied Health Allied health notes reviewed: nursing, case management Results - Labs CBC & Chem 7: 06/13/20 11:54 06/13/20 11:54 Labs: Laboratory Last Values WBC 12.1 K/mm3 (4.5-11.0) H 06/13/20 11:54 RBC 4.39 M/mm3 (3.65-5.03) 06/13/20 11:54 Hgb 13.0 gm/dl (10.1-14.3) 06/13/20 11:54 Hct 39.6 % (30.3-42.9) 06/13/20 11:54 MCV 90 fl (79-97) 06/13/20 11:54 MCH 30 pg (28-32) 06/13/20 11:54 MCHC 33 % (30-34) 06/13/20 11:54 RDW 15.3 % (13.2-15.2) H 06/13/20 11:54 Plt Count 238 K/mm3 (140-440) 06/13/20 11:54 Lymph % (Auto) 7.0 % (13.4-35.0) L 06/13/20 11:54 [place] % (Auto) 8.9 % (0.0-7.3) H 06/13/20 11:54 Eos % (Auto) 0.1 % (0.0-4.3) 06/13/20 11:54 Baso % (Auto) 0.3 % (0.0-1.8) 06/13/20 11:54 Lymph # (Auto) 0.8 K/mm3 (1.2-5.4) L 06/13/20 11:54 [place] # (Auto) 1.1 K/mm3 (0.0-0.8) H 06/13/20 11:54 Eos # (Auto) 0.0 K/mm3 (0.0-0.4) 06/13/20 11:54 Baso # (Auto) 0.0 K/mm3 (0.0-0.1) 06/13/20 11:54 Seg Neutrophils % 83.7 % (40.0-70.0) H 06/13/20 11:54 Seg Neutrophils # 10.1 K/mm3 (1.8-7.7) H 06/13/20 11:54 Sodium 134 mmol/L (137-145) L 06/13/20 11:54 Potassium 3.9 mmol/L (3.6-5.0) 06/13/20 11:54 Chloride 99.7 mmol/L (98-107) 06/13/20 11:54 Carbon Dioxide 25 mmol/L (22-30) 06/13/20 11:54 Anion Gap 13 mmol/L 06/13/20 11:54 BUN 5 mg/dL (7-17) L 06/13/20 11:54 Creatinine 0.8 mg/dL (0.6-1.2) 06/13/20 11:54 Estimated GFR > 60 ml/min 06/13/20 11:54 BUN/Creatinine Ratio 6 % 06/13/20 11:54 Glucose 117 mg/dL (65-100) H 06/13/20 11:54 Lactic Acid 1.10 mmol/L (0.7-2.0) 06/13/20 14:01 Calcium 9.0 mg/dL (8.4-10.2) 06/13/20 11:54 Total Bilirubin 0.40 mg/dL (0.1-1.2) 06/13/20 11:54 AST 11 units/L (5-40) 06/13/20 11:54 ALT 6 units/L (7-56) L 06/13/20 11:54 Alkaline Phosphatase 68 units/L (35-129) 06/13/20 11:54 Total Protein 7.5 g/dL (6.3-8.2) 06/13/20 11:54 Albumin 4.0 g/dL (3.9-5) 06/13/20 11:54 Albumin/Globulin Ratio 1.1 % 06/13/20 11:54 Lipase 12 units/L (13-60) L 06/13/20 11:54 HCG, Qual Negative (Negative) 06/13/20 11:54 Urine Color Yellow (Yellow) 06/13/20 13:07 Urine Turbidity Slightly-cloudy (Clear) 06/13/20 13:07 Urine pH 6.0 (5.0-7.0) 06/13/20 13:07 Ur Specific [place] 1.017 (1.003-1.030) 06/13/20 13:07 Urine Protein 100 mg/dl mg/dL (Negative) 06/13/20 13:07 Urine Glucose (UA) Neg mg/dL (Negative) 06/13/20 13:07 Urine Ketones Neg mg/dL (Negative) 06/13/20 13:07 Urine Blood Mod (Negative) 06/13/20 13:07 Urine Nitrite Neg (Negative) 06/13/20 13:07 Urine Bilirubin Neg (Negative) 06/13/20 13:07 Urine Urobilinogen 2.0 mg/dL (<2.0) 06/13/20 13:07 Ur Leukocyte Esterase Sm (Negative) 06/13/20 13:07 Urine WBC (Auto) 66.0 /HPF (0.0-6.0) H 06/13/20 13:07 Urine RBC (Auto) 69.0 /HPF (0.0-6.0) 06/13/20 13:07 U Epithel Cells (Auto) 6.0 /HPF (0-13.0) 06/13/20 13:07 Urine Bacteria (Auto) 1+ /HPF (Negative) 06/13/20 13:07 Urine Mucus 2+ /HPF 06/13/20 13:07 Microbiology: Microbiology 06/13/20 14:01 Peripheral/Venous Blood Culture - Preliminary Culture in Progress 06/13/20 14:01 Peripheral/Venous Blood Culture - Preliminary Culture in Progress - Imaging and Cardiology Imaging and Cardiology: Abdomen/pelvis CT Acute bilateral pyelonephritis right greater than left. Cystitis there is no GERD no hydronephrosis Araujo/IV: Voiding Method Toilet IV Catheter Type [Left INT / Saline Lock Antecubital] Assessment and Plan Advance Directives: Yes (Full code) VTE prophylaxis?: Chemical Plan of care discussed with patient/family: Yes - Patient Problems (1) SIRS (systemic inflammatory response syndrome) Current Visit: Yes Status: Acute Plan to address problem: Clinical risks clinical picture consistent with Sirs in view of fever tachycardia and leukocytosis (2) Acute pyelonephritis Current Visit: Yes Status: Acute Plan to address problem: Patient initiated on IV Rocephin 2 g IV piggyback every 24 pending urine cultures and blood cultures (3) UTI (urinary tract infection) Current Visit: Yes Status: Acute Qualifiers: Urinary tract infection type: acute cystitis Hematuria presence: with hemat uria Qualified Code(s): N30.01 - Acute cystitis with hematuria Plan to address problem: IV Rocephin for now (4) Hyponatremia Current Visit: Yes Status: Acute Plan to address problem: Mild IV normal saline for now (5) DVT prophylaxis Current Visit: Yes Status: Acute Plan to address problem: On SCDs and GI prophylaxis
[2020-06-13] MEDS: SODIUM CHLORIDE 0.9% 1000 ML 1,000 ML IV SCH (22:43)
[2020-06-13] MEDS: FAMOTIDINE 20 MG/2 ML INJ IV SCH (22:45)
[2020-06-13] MEDS: oxyCODONE /ACETAMINOPHEN 5-325MG TAB PO PRN (22:46)
[2020-06-13] MEDS: ONDANSETRON 4 MG/2 ML INJ IV PRN (22:46)
[2020-06-14] MEDS: HYDROmorphone 1 MG/1 ML INJ IV PRN ×3 (04:08→20:33)
[2020-06-14] MEDS: SODIUM CHLORIDE 0.9% 1000 ML 1,000 ML IV SCH ×3 (04:11→23:21)
[2020-06-14] MEDS: oxyCODONE /ACETAMINOPHEN 5-325MG TAB PO PRN ×3 (09:22→23:18)
[2020-06-14] MEDS: FAMOTIDINE 20 MG/2 ML INJ IV SCH ×2 (09:29→21:08)
[2020-06-14] MEDS: cefTRIAXone/NS 2 GM/100 ML 2 GM/100 ML BAG IV SCH (10:10)
[2020-06-15] MEDS: HYDROmorphone 1 MG/1 ML INJ IV PRN ×4 (05:10→20:56)
--- NOTE | 2020-06-15 07:41 | Progress Note ---
Assessment and Plan - Patient Problems (1) SIRS (systemic inflammatory response syndrome) Current Visit: Yes Status: Acute Plan to address problem: Clinical risks clinical picture consistent with Sirs in view of fever tachycardia and leukocytosis (2) Acute pyelonephritis Current Visit: Yes Status: Acute Plan to address problem: Patient initiated on IV Rocephin 2 g IV piggyback every 24 pending urine cultures and blood cultures (3) UTI (urinary tract infection) Current Visit: Yes Status: Acute Qualifiers: Urinary tract infection type: acute cystitis Hematuria presence: with hematuria Qualified Code(s): N30.01 - Acute cystitis with hematuria Plan to address problem: IV Rocephin for now (4) Hyponatremia Current Visit: Yes Status: Acute Plan to address problem: Mild IV normal saline for now (5) DVT prophylaxis Current Visit: Yes Status: Acute Plan to address problem: On SCDs and GI prophylaxis Subjective Date of service: 06/14/20 Principal diagnosis: Acute pyelonephritis Interval history: Patient admitted for acute pyelonephritis because of the bilateral flank pain. Patient slightly symptomatically better. Pain is better. Patient on IV Rocephin. Objective - Constitutional Vitals: Vital Signs - 12hr 06/14/20 06/14/20 06/14/20 19:43 20:33 22:00 Temperature 98.8 F Pulse Rate 81 Respiratory 18 20 Rate Respiratory 18 Rate [Right Abdomen] Blood Pressure 111/71 O2 Sat by Pulse 100 Oximetry 06/14/20 06/14/20 06/15/20 23:14 23:18 05:10 Temperature 98.9 F Pulse Rate 79 Respiratory 18 18 18 Rate Respiratory Rate [Right Abdomen] Blood Pressure 120/74 O2 Sat by Pulse 100 Oximetry 06/15/20 05:31 Temperature 98.3 F Pulse Rate 83 Respiratory 18 Rate Respiratory Rate [Right Abdomen] Blood Pressure 114/75 O2 Sat by Pulse 100 Oximetry General appearance: Present: no acute distress, well-nourished - EENT Eyes: PERRL, EOM intact ENT: hearing intact, clear oral mucosa Ears: bilateral: normal - Neck Neck: supple, normal ROM - Respiratory Details: 78. Respiratory effort: normal Respiratory: bilateral: CTA - Breasts Breasts: normal - Cardiovascular Rhythm: regular Heart Sounds: Present: S1 & S2. Absent: gallop, rub Extremities: pulses intact, No edema, normal color, Full ROM - Gastrointestinal General gastrointestinal: Present: soft, non-tender, non-distended, normal bowel sounds - Genitourinary Female genitourinary: normal - Integumentary Integumentary: clear, warm, dry - Musculoskeletal Musculoskeletal: 1, strength equal bilaterally - Neurologic Neurologic: moves all extremities - Psychiatric Psychiatric: memory intact, appropriate mood/affect, intact judgment & insight - Labs CBC & Chem 7: 06/13/20 11:54 06/13/20 11:54
[2020-06-15] MEDS: FAMOTIDINE 20 MG/2 ML INJ IV SCH (08:40)
[2020-06-15] MEDS: cefTRIAXone/NS 2 GM/100 ML 2 GM/100 ML BAG IV SCH (09:07)
[2020-06-15] MEDS: ONDANSETRON 4 MG/2 ML INJ IV PRN (10:07)
--- NOTE | 2020-06-15 14:39 | Progress Note ---
Assessment and Plan Assessment and plan: --Acute bilateral pyelonephritis; Right more than left, empiric IV antibiotics Follow urine and blood cultures Pain medications, IV fluids,Supportive care --Urinary tract infection; cultures positive for gram-negative rods Probably E. coli, continue Rocephin Follow culture sensitivities --Sepsis secondary to bilateral pyelonephritis/UTI Continue IV antibiotics, supportive care, ID consult --Leukocytosis; secondary to sepsis Treat the underlying cause, trend WBC --Mild hyponatremia; IV normal saline, closely monitor electrolytes --Ongoing tobacco use; Smoking cessation counseling done Risks and consequences and complications of long-term smoking discussed with the patient Smoking cessation education given, spent about 17 minutes --Insomnia; melatonin nightly for sleep --DVT prophylaxis; Lovenox We will closely monitor the patient and adjust the management as needed Plan of care reviewed with the patient and her nurse Follow ID evaluation and recommendations Possible discharge in 1 to 2 days if stable History Interval history: I have seen and examined the patient at the bedside this afternoon Patient's chart and medications reviewed Patient admitted with acute bilateral pyelonephritis and UTI Urine cultures positive for gram-negative rods Patient is on Rocephin Patient feels better complains of vague abdominal pain And also complains of insomnia Vital signs noted Hospitalist Physical - Constitutional Vitals: Temp Pulse Resp BP Pulse Ox 98.5 F 72 16 115/85 100 06/15/20 06:58 06/15/20 06:58 06/15/20 06:58 06/15/20 06:58 06/15/20 06:58 General appearance: Present: no acute distress, well-nourished - EENT Eyes: Present: PERRL, EOM intact - Neck Neck: Present: supple, normal ROM - Respiratory Respiratory effort: normal Respiratory: bilateral: diminished, negative: rales, rhonchi, wheezing - Cardiovascular Rhythm: regular Heart Sounds: Present: S1 & S2 - Extremities Extremities: no ischemia, No edema - Abdominal General gastrointestinal: soft, non-tender, non-distended, normal bowel sounds - Integumentary Integumentary: Present: clear, warm - Psychiatric Psychiatric: appropriate mood/affect, cooperative - Neurologic Neurologic: moves all extremities Results - Labs CBC & Chem 7: 06/13/20 11:54 06/13/20 11:54 Labs: Laboratory Last Values WBC 12.1 K/mm3 (4.5-11.0) H 06/13/20 11:54 RBC 4.39 M/mm3 (3.65-5.03) 06/13/20 11:54 Hgb 13.0 gm/dl (10.1-14.3) 06/13/20 11:54 Hct 39.6 % (30.3-42.9) 06/13/20 11:54 MCV 90 fl (79-97) 06/13/20 11:54 MCH 30 pg (28-32) 06/13/20 11:54 MCHC 33 % (30-34) 06/13/20 11:54 RDW 15.3 % (13.2-15.2) H 06/13/20 11:54 Plt Count 238 K/mm3 (140-440) 06/13/20 11:54 Lymph % (Auto) 7.0 % (13.4-35.0) L 06/13/20 11:54 [place] % (Auto) 8.9 % (0.0-7.3) H 06/13/20 11:54 Eos % (Auto) 0.1 % (0.0-4.3) 06/13/20 11:54 Baso % (Auto) 0.3 % (0.0-1.8) 06/13/20 11:54 Lymph # (Auto) 0.8 K/mm3 (1.2-5.4) L 06/13/20 11:54 [place] # (Auto) 1.1 K/mm3 (0.0-0.8) H 06/13/20 11:54 Eos # (Auto) 0.0 K/mm3 (0.0-0.4) 06/13/20 11:54 Baso # (Auto) 0.0 K/mm3 (0.0-0.1) 06/13/20 11:54 Seg Neutrophils % 83.7 % (40.0-70.0) H 06/13/20 11:54 Seg Neutrophils # 10.1 K/mm3 (1.8-7.7) H 06/13/20 11:54 Sodium 134 mmol/L (137-145) L 06/13/20 11:54 Potassium 3.9 mmol/L (3.6-5.0) 06/13/20 11:54 Chloride 99.7 mmol/L (98-107) 06/13/20 11:54 Carbon Dioxide 25 mmol/L (22-30) 06/13/20 11:54 Anion Gap 13 mmol/L 06/13/20 11:54 BUN 5 mg/dL (7-17) L 06/13/20 11:54 Creatinine 0.8 mg/dL (0.6-1.2) 06/13/20 11:54 Estimated GFR > 60 ml/min 06/13/20 11:54 BUN/Creatinine Ratio 6 % 06/13/20 11:54 Glucose 117 mg/dL (65-100) H 06/13/20 11:54 Lactic Acid 1.10 mmol/L (0.7-2.0) 06/13/20 14:01 Calcium 9.0 mg/dL (8.4-10.2) 06/13/20 11:54 Total Bilirubin 0.40 mg/dL (0.1-1.2) 06/13/20 11:54 AST 11 units/L (5-40) 06/13/20 11:54 ALT 6 units/L (7-56) L 06/13/20 11:54 Alkaline Phosphatase 68 units/L (35-129) 06/13/20 11:54 Total Protein 7.5 g/dL (6.3-8.2) 06/13/20 11:54 Albumin 4.0 g/dL (3.9-5) 06/13/20 11:54 Albumin/Globulin Ratio 1.1 % 06/13/20 11:54 Lipase 12 units/L (13-60) L 06/13/20 11:54 HCG, Qual Negative (Negative) 06/13/20 11:54 Urine Color Yellow (Yellow) 06/13/20 13:07 Urine Turbidity Slightly-cloudy (Clear) 06/13/20 13:07 Urine pH 6.0 (5.0-7.0) 06/13/20 13:07 Ur Specific [place] 1.017 (1.003-1.030) 06/13/20 13:07 Urine Protein 100 mg/dl mg/dL (Negative) 06/13/20 13:07 Urine Glucose (UA) Neg mg/dL (Negative) 06/13/20 13:07 Urine Ketones Neg mg/dL (Negative) 06/13/20 13:07 Urine Blood Mod (Negative) 06/13/20 13:07 Urine Nitrite Neg (Negative) 06/13/20 13:07 Urine Bilirubin Neg (Negative) 06/13/20 13:07 Urine Urobilinogen 2.0 mg/dL (<2.0) 06/13/20 13:07 Ur Leukocyte Esterase Sm (Negative) 06/13/20 13:07 Urine WBC (Auto) 66.0 /HPF (0.0-6.0) H 06/13/20 13:07 Urine RBC (Auto) 69.0 /HPF (0.0-6.0) 06/13/20 13:07 U Epithel Cells (Auto) 6.0 /HPF (0-13.0) 06/13/20 13:07 Urine Bacteria (Auto) 1+ /HPF (Negative) 06/13/20 13:07 Urine Mucus 2+ /HPF 06/13/20 13:07 Microbiology: Microbiology 06/13/20 14:01 Peripheral/Venous Blood Culture - Preliminary NO GROWTH AFTER 24 HOURS 06/13/20 14:01 Peripheral/Venous Blood Culture - Preliminary NO GROWTH AFTER 24 HOURS 06/13/20 13:07 Urine,Clean Catch Urine Culture - Preliminary Gram Negative Christiano Araujo/IV: Voiding Method Toilet IV Catheter Type [Left INT / Saline Lock Antecubital] Active Medications - Current Medications Current Medications: Generic Name Dose Route Start Last Admin Trade Name Freq PRN Reason Stop Dose Admin Acetaminophen 650 mg 06/13/20 21:26 Acetaminophen 325 Mg Tab PO Q4H PRN Pain MILD(1-3)/Fever >100.5/GASPAR Famotidine 20 mg 06/15/20 22:00 Famotidine 20 Mg Tab PO BID SANGEETA Hydromorphone HCl 0.5 mg 06/13/20 15:22 06/15/20 13:18 Hydromorphone 1 Mg/1 Ml Inj IV 0.5 mg Q3H PRN Administration Pain , Severe (7-10) Sodium Chloride 1,000 mls @ 75 mls/hr 06/13/20 21:30 06/14/20 23:21 Nacl 0.9% 1000 Ml IV 75 mls/hr DIRECT SANGEETA Administration Ceftriaxone Sodium 2 gm in 100 mls @ 200 mls/hr 06/14/20 10:00 06/15/20 09:07 Rocephin/Ns 2 Gm/100 Ml IV 200 mls/hr Q24HR SANGEETA Administration Protocol Metoclopramide HCl 10 mg 06/13/20 21:26 Metoclopramide 10 Mg/2 Ml Inj IV Q6H PRN Nausea And Vomiting Ondansetron HCl 4 mg 06/13/20 21:26 06/15/20 10:07 Ondansetron 4 Mg/2 Ml Inj IV 4 mg Q3H PRN Administration Nausea And Vomiting Oxycodone/Acetaminophen 1 tab 06/13/20 21:26 06/14/20 23:18 Oxycodone /Acetaminophen 5-325mg Tab PO 1 tab Q6H PRN Administration Pain, Moderate (4-6) Sodium Chloride 10 ml 06/13/20 22:00 06/15/20 13:05 Sodium Chloride 0.9% 10 Ml Flush Syringe IV Not Given BID SANGEETA Sodium Chloride 10 ml 06/13/20 21:26 Sodium Chloride 0.9% 10 Ml Flush Syringe IV PRN PRN LINE FLUSH Tramadol HCl 50 mg 06/13/20 21:22 Tramadol 50 Mg Tab PO Q4HR PRN Pain, Moderate (4-6)
[2020-06-15] MEDS: oxyCODONE /ACETAMINOPHEN 5-325MG TAB PO PRN (15:35)
[2020-06-15] MEDS: FAMOTIDINE 20 MG TAB PO SCH (21:03)
[2020-06-16] MEDS: SODIUM CHLORIDE 0.9% 1000 ML 1,000 ML IV SCH (02:04)
[2020-06-16 05:45] LABS: Hematocrit 33.5 % (30.3-42.9); Hemoglobin 11.2 gm/dl (10.1-14.3); Mean Corpuscular HGB Conc 34 % (30-34); Mean Corpuscular Volume 90 fl (79-97); Platelet Count 210 K/mm3 (140-440); Red Blood Count 3.74 M/mm3 (3.65-5.03); Red Cell Distribution Width 14.7 % (13.2-15.2)
[2020-06-16 06:01] LABS: Blood Urea Nitrogen 3 mg/dL (7-17); Hemolysis Index 1
[2020-06-16 06:04] LABS: BUN/Creatinine Ratio 6
[2020-06-16 06:46] LABS: Total Cells Counted 100
[2020-06-16 06:47] LABS: Platelet Estimate Consistent w Auto
[2020-06-16] MEDS: FAMOTIDINE 20 MG TAB PO SCH ×2 (09:52→21:13)
[2020-06-16] MEDS: cefTRIAXone/NS 2 GM/100 ML 2 GM/100 ML BAG IV SCH (11:41)
[2020-06-16] MEDS: HYDROmorphone 1 MG/1 ML INJ IV PRN (14:26)
--- NOTE | 2020-06-16 15:36 | Consultation ---
History of Present Illness - Reason for Consult Consult date: 06/16/20 Pyelonephritis Requesting physician: NILESH CARDOSO - History of Present Illness 24 years old female with history of menorrhagia and anemia admitted on 06/13/2020 secondary to 3-day history of severe right flank pain and frequency. Patient reports she has been having on and off flank pain bilaterally for several months. She has been seen in the ED and was found to have an ovarian cyst. On admission pain was 8 out of 10 associated with nausea, vomiting and chills. She denies any fever. She denies any history of previous kidney stones or UTIs. In the ED, initial temperature 100.1, HR 98, RR 20, BP 112/57. Initial WBC 12.1. Creatinine 0.8. Urinalysis with 66 WBCs and small leukocyte esterase. Urine culture 06/13/2020 with E. coli pansensitive except for doxycycline. Blood culture 06/13/[address] of abdomen shows bilateral pyelonephritis right worse than left. Review of Systems: positive in bold print General: fever, chills, malaise Cutaneous: rash, pruritus Head: headaches or injury Eyes: changes in vision, eye pain, double vision Ears: ear pain, ear discharge, ringing or hearing loss Nose: nose bleeding, stuffiness Mouth & throat: bleeding gums, horseness, no dental problems, or swollen glands Neck: no pain, node enlargement/lumps, tyroid enlargement or tenderness Respiratory: SOB, cough, CHANEY, wheezing, sputum, hemoptysis, pleuritic chest pain Cardiovascular: chest pain, leg edema, cyanosis, CHANEY, orthopnea Musculoskeletal: edema, deformities, pain Gastrointestinal: Bilateral flank pain, nausea, vomiting, hematemesis, diarrhea, constipation, melena, bright red blood in stools, fecal incontinence, jaundice Genitourinary/Reproductive: frequent urination, dysuria, hematuria, incontinence Neurogical: seizures, headaches, weakness, paresthesias, loss of speech or vision; memory loss, vertigo, tremors, numbness Psychiatric: stable mood; excessive anxiety, sadness or moodiness Medications and Allergies Allergies Allergy/AdvReac Type Severity Reaction Status Date / Time coconut oil Allergy Itching Verified 02/19/19 16:08 Home Medications Medication Instructions Recorded Confirmed Last Taken Type Acetaminophen/Codeine [Tylenol 1 tab PO Q6H PRN #12 tab 10/28/19 Unknown Rx /Codeine # 3 tab] Doxycycline Hyclate 100 mg PO Q12H #20 tablet. 10/28/19 Unknown Rx Fluconazole (Nf) [Diflucan TAB] 150 mg PO ONCE #2 tablet 10/28/19 Unknown Rx Ketorolac [Toradol] 10 mg PO Q8H PRN #20 tablet 10/28/19 Unknown Rx Ondansetron [Zofran Odt] 4 mg PO Q6HR PRN #20 tab.rapdis 10/28/19 Unknown Rx cephALEXin [Keflex] 500 mg PO Q8HR #30 cap 10/28/19 Unknown Rx metroNIDAZOLE [Flagyl] 500 mg PO Q12HR #20 tab 10/28/19 Unknown Rx Ondansetron [Zofran Odt] 4 mg PO Q8HR PRN #14 tab.rapdis 03/29/20 Unknown Rx traMADoL [Ultram 50 MG tab] 50 mg PO Q4HR PRN #14 tablet 03/29/20 Unknown Rx Active Meds: Active Medications Acetaminophen (Acetaminophen 325 Mg Tab) 650 mg PO Q4H PRN PRN Reason: Pain MILD(1-3)/Fever >100.5/GASPAR Famotidine (Famotidine 20 Mg Tab) 20 mg PO BID SANGEETA Last Admin: 06/16/20 09:52 Dose: 20 mg Documented by: Hydromorphone HCl (Hydromorphone 1 Mg/1 Ml Inj) 0.5 mg IV Q6H PRN PRN Reason: Pain , Severe (7-10) Last Admin: 06/16/20 14:26 Dose: 0.5 mg Documented by: Sodium Chloride (Nacl 0.9% 1000 Ml) 1,000 mls @ 75 mls/hr IV DIRECT SANGEETA Last Admin: 06/16/20 02:04 Dose: 75 mls/hr Documented by: Ceftriaxone Sodium (Rocephin/Ns 2 Gm/100 Ml) 2 gm in 100 mls @ 200 mls/hr IV Q24HR SANGEETA; Protocol Last Admin: 06/16/20 11:41 Dose: 200 mls/hr Documented by: Metoclopramide HCl (Metoclopramide 10 Mg/2 Ml Inj) 10 mg IV Q6H PRN PRN Reason: Nausea And Vomiting Ondansetron HCl (Ondansetron 4 Mg/2 Ml Inj) 4 mg IV Q3H PRN PRN Reason: Nausea And Vomiting Last Admin: 06/15/20 10:07 Dose: 4 mg Documented by: Oxycodone/Acetaminophen (Oxycodone /Acetaminophen 5-325mg Tab) 1 tab PO Q6H PRN PRN Reason: Pain, Moderate (4-6) Last Admin: 06/15/20 15:35 Dose: 1 tab Documented by: Sodium Chloride (Sodium Chloride 0.9% 10 Ml Flush Syringe) 10 ml IV BID SANGEETA Last Admin: 06/16/20 09:51 Dose: 10 ml Documented by: Sodium Chloride (Sodium Chloride 0.9% 10 Ml Flush Syringe) 10 ml IV PRN PRN PRN Reason: LINE FLUSH Tramadol HCl (Tramadol 50 Mg Tab) 50 mg PO Q4HR PRN PRN Reason: Pain, Moderate (4-6) Physical Examination - Physical Exam Narrative exam: General appearance: Alert in NAD pleasant Eyes: anicteric sclerae, moist conjunctivae; no lid-lag; PERRLA HENT: Normocephalic, Atraumatic; normal external ears, nares open, oropharynx clear with moist mucous membranes and no oral thrush; normal hard and soft spencer te. Neck: supple, tracheal midline, no JVD Lungs: CTA CV: RRR no murmur Abdomen: Soft, non-tender; right flank tenderness Extremities: no edema, no cyanosis Skin: No rash. Psych: no agitated Neuro: alert and oriented x 3. Moving all extermities - Constitutional Vitals: Vital Signs Temp Pulse Resp BP Pulse Ox 98.2 F 86 18 105/62 100 06/16/20 12:27 06/16/20 12:27 06/16/20 12:27 06/16/20 12:27 06/16/20 12:27 Temperature -Last 24 Hours Temperature 98.2 F Temperature 98.4 F Temperature 98.4 F Temperature 97.8 F Temperature 98.6 F Results - Labs CBC & Chem 7: 06/16/20 04:45 06/16/20 04:45 Labs: Abnormal lab results 06/16/20 06/16/20 Range/Units 04:45 04:45 Monocytes % (Manual) 16.0 H (0.0-7.3) % BUN 3 L (7-17) mg/dL Creatinine 0.5 L (0.6-1.2) mg/dL Calcium 8.0 L (8.4-10.2) mg/dL Assessment and Plan Cultures: Urine culture E. coli Blood culture no growth today Assessment: 24 years old female with history of menorrhagia and anemia admitted on 06/13/2020 secondary to 3-day history of severe right flank pain and frequency: #Sepsis: present on admission with fever, tachycardia, leukocytosis; source bilateral pyelonephritis #UTI/bilateral pyelonephritis, CT without any hydronephrosis or stones. Urine culture grew E. coli basically pansensitive. Blood culture no growth today. Recommendations: -Continue ceftriaxone 1 g once a day for now -Okay to discharge home Keflex 500 g p.o. 4 times daily total 10 days Will follow. Xiomara Moralez MD Infectious Diseases [employer] [facility] ([facility] M [phone] O [phone]
--- NOTE | 2020-06-16 16:52 | Progress Note ---
Assessment and Plan Assessment and plan: --Acute bilateral pyelonephritis; Right more than left, on IV Rocephin Urine cultures E. coli, sensitivities reviewed Blood cultures negative to date Pain medications, IV fluids,Supportive care --Urinary tract infection; Urine cultures positive E. coli continue Rocephin, sensitivities reviewed Follow ID evaluation and recommendations --Sepsis secondary to bilateral pyelonephritis/UTI Continue IV antibiotics, supportive care, ID consult --Leukocytosis; secondary to sepsis Trending down, treat underlying cause --Mild hyponatremia; resolved Continue IV normal saline, closely monitor electrolytes --Ongoing tobacco use; Smoking cessation counseling done Risks and consequences and complications of long-term smoking discussed with the patient Smoking cessation education given, spent about 17 minutes --Insomnia; melatonin nightly for sleep as needed --DVT prophylaxis; Lovenox We will closely monitor the patient and adjust the management as needed Possible discharge home tomorrow if stable on oral antibiotics Follow ID evaluation and recommendations Plan of care reviewed with the patient and her nurse History Interval history: I have seen and examined the patient at the bedside in her room this morning Patient's chart and medications reviewed Admitted with bilateral pyelonephritis and UTI Urine cultures positive for E. coli Sensitivities reviewed Patient is on Rocephin Patient feels slightly better Still complains of some bilateral flank pains Afebrile, Vital signs noted Hospitalist Physical - Constitutional Vitals: Temp Pulse Resp BP Pulse Ox 98.2 F 86 18 105/62 100 06/16/20 12:27 06/16/20 12:27 06/16/20 12:27 06/16/20 12:27 06/16/20 12:27 General appearance: Present: no acute distress, well-nourished - EENT Eyes: Present: PERRL, EOM intact - Neck Neck: Present: supple, normal ROM - Respiratory Respiratory effort: normal Respiratory: bilateral: diminished, negative: rales, rhonchi, wheezing - Cardiovascular Rhythm: regular Heart Sounds: Present: S1 & S2 - Extremities Extremities: no ischemia, No edema - Abdominal General gastrointestinal: soft, tender (Vague abdominal pain no guarding no rigidity), normal bowel sounds - Integumentary Integumentary: Present: clear, warm - Psychiatric Psychiatric: appropriate mood/affect, cooperative - Neurologic Neurologic: moves all extremities Results - Labs CBC & Chem 7: 06/16/20 04:45 06/16/20 04:45 Labs: Laboratory Last Values WBC 5.1 K/mm3 (4.5-11.0) 06/16/20 04:45 RBC 3.74 M/mm3 (3.65-5.03) 06/16/20 04:45 Hgb 11.2 gm/dl (10.1-14.3) 06/16/20 04:45 Hct 33.5 % (30.3-42.9) D 06/16/20 04:45 MCV 90 fl (79-97) 06/16/20 04:45 MCH 30 pg (28-32) 06/16/20 04:45 MCHC 34 % (30-34) 06/16/20 04:45 RDW 14.7 % (13.2-15.2) 06/16/20 04:45 Plt Count 210 K/mm3 (140-440) 06/16/20 04:45 Lymph % (Auto) 7.0 % (13.4-35.0) L 06/13/20 11:54 [place] % (Auto) Counseling Program Leader 06/16/20 04:45 Eos % (Auto) 0.1 % (0.0-4.3) 06/13/20 11:54 Baso % (Auto) 0.3 % (0.0-1.8) 06/13/20 11:54 Lymph # (Auto) 0.8 K/mm3 (1.2-5.4) L 06/13/20 11:54 [place] # (Auto) 1.1 K/mm3 (0.0-0.8) H 06/13/20 11:54 Eos # (Auto) 0.0 K/mm3 (0.0-0.4) 06/13/20 11:54 Baso # (Auto) 0.0 K/mm3 (0.0-0.1) 06/13/20 11:54 Add Manual Diff Complete 06/16/20 04:45 Total Counted 100 06/16/20 04:45 Seg Neutrophils % 83.7 % (40.0-70.0) H 06/13/20 11:54 Seg Neuts % (Manual) 49.0 % (40.0-70.0) 06/16/20 04:45 Lymphocytes % (Manual) 34.0 % (13.4-35.0) 06/16/20 04:45 Monocytes % (Manual) 16.0 % (0.0-7.3) H 06/16/20 04:45 Eosinophils % (Manual) 1.0 % (0.0-4.3) 06/16/20 04:45 Nucleated RBC % Not Reportable 06/16/20 04:45 Seg Neutrophils # 10.1 K/mm3 (1.8-7.7) H 06/13/20 11:54 Seg Neutrophils # Man 2.5 K/mm3 (1.8-7.7) 06/16/20 04:45 Band Neutrophils # 0.0 K/mm3 06/16/20 04:45 Lymphocytes # (Manual) 1.7 K/mm3 (1.2-5.4) 06/16/20 04:45 Abs React Lymphs (Man) 0.0 K/mm3 06/16/20 04:45 Monocytes # (Manual) 0.8 K/mm3 (0.0-0.8) 06/16/20 04:45 Eosinophils # (Manual) 0.1 K/mm3 (0.0-0.4) 06/16/20 04:45 Basophils # (Manual) 0.0 K/mm3 (0.0-0.1) 06/16/20 04:45 Metamyelocytes # 0.0 K/mm3 06/16/20 04:45 Myelocytes # 0.0 K/mm3 06/16/20 04:45 Promyelocytes # 0.0 K/mm3 06/16/20 04:45 Blast Cells # 0.0 K/mm3 06/16/20 04:45 WBC Morphology Not Reportable 06/16/20 04:45 Hypersegmented Neuts Not Reportable 06/16/20 04:45 Hyposegmented Neuts Not Reportable 06/16/20 04:45 Hypogranular Neuts Not Reportable 06/16/20 04:45 Smudge Cells Not Reportable 06/16/20 04:45 Toxic Granulation Not Reportable 06/16/20 04:45 Toxic Vacuolation Not Reportable 06/16/20 04:45 Dohle Bodies Not Reportable 06/16/20 04:45 Pelger-Huet Anomaly Not Reportable 06/16/20 04:45 Nasra Rods Not Reportable 06/16/20 04:45 Platelet Estimate Consistent w auto 06/16/20 04:45 Clumped Platelets Not Reportable 06/16/20 04:45 Plt Clumps, EDTA Not Reportable 06/16/20 04:45 Large Platelets Not Reportable 06/16/20 04:45 Giant Platelets Not Reportable 06/16/20 04:45 Platelet Satelliting Not Reportable 06/16/20 04:45 Plt Morphology Comment Not Reportable 06/16/20 04:45 RBC Morphology Not Reportable 06/16/20 04:45 Dimorphic RBCs Not Reportable 06/16/20 04:45 Polychromasia Not Reportable 06/16/20 04:45 Hypochromasia Not Reportable 06/16/20 04:45 Poikilocytosis Not Reportable 06/16/20 04:45 Anisocytosis Not Reportable 06/16/20 04:45 Microcytosis Not Reportable 06/16/20 04:45 Macrocytosis Not Reportable 06/16/20 04:45 Spherocytes Not Reportable 06/16/20 04:45 Pappenheimer Bodies Not Reportable 06/16/20 04:45 Sickle Cells Not Reportable 06/16/20 04:45 Target Cells Not Reportable 06/16/20 04:45 Tear Drop Cells Not Reportable 06/16/20 04:45 Ovalocytes Not Reportable 06/16/20 04:45 Helmet Cells Not Reportable 06/16/20 04:45 Shaw-Lyerly Bodies Not Reportable 06/16/20 04:45 [place] Rings Not Reportable 06/16/20 04:45 Ayer Cells Not Reportable 06/16/20 04:45 Bite Cells Not Reportable 06/16/20 04:45 Crenated Cell Not Reportable 06/16/20 04:45 Elliptocytes Not Reportable 06/16/20 04:45 Acanthocytes (Spur) Not Reportable 06/16/20 04:45 Rouleaux Not Reportable 06/16/20 04:45 Hemoglobin C Crystals Not Reportable 06/16/20 04:45 Schistocytes Not Reportable 06/16/20 04:45 Malaria parasites Not Reportable 06/16/20 04:45 Matt Bodies Not Reportable 06/16/20 04:45 Hem Pathologist Commnt No 06/16/20 04:45 Sodium 139 mmol/L (137-145) 06/16/20 04:45 Potassium 3.8 mmol/L (3.6-5.0) 06/16/20 04:45 Chloride 102.8 mmol/L (98-107) 06/16/20 04:45 Carbon Dioxide 26 mmol/L (22-30) 06/16/20 04:45 Anion Gap 14 mmol/L 06/16/20 04:45 BUN 3 mg/dL (7-17) L 06/16/20 04:45 Creatinine 0.5 mg/dL (0.6-1.2) L 06/16/20 04:45 Estimated GFR > 60 ml/min 06/16/20 04:45 BUN/Creatinine Ratio 6 % 06/16/20 04:45 Glucose 73 mg/dL (65-100) 06/16/20 04:45 Lactic Acid 1.10 mmol/L (0.7-2.0) 06/13/20 14:01 Calcium 8.0 mg/dL (8.4-10.2) L 06/16/20 04:45 Total Bilirubin 0.40 mg/dL (0.1-1.2) 06/13/20 11:54 AST 11 units/L (5-40) 06/13/20 11:54 ALT 6 units/L (7-56) L 06/13/20 11:54 Alkaline Phosphatase 68 units/L (35-129) 06/13/20 11:54 Total Protein 7.5 g/dL (6.3-8.2) 06/13/20 11:54 Albumin 4.0 g/dL (3.9-5) 06/13/20 11:54 Albumin/Globulin Ratio 1.1 % 06/13/20 11:54 Lipase 12 units/L (13-60) L 06/13/20 11:54 HCG, Qual Negative (Negative) 06/13/20 11:54 Urine Color Yellow (Yellow) 06/13/20 13:07 Urine Turbidity Slightly-cloudy (Clear) 06/13/20 13:07 Urine pH 6.0 (5.0-7.0) 06/13/20 13:07 Ur Specific [place] 1.017 (1.003-1.030) 06/13/20 13:07 Urine Protein 100 mg/dl mg/dL (Negative) 06/13/20 13:07 Urine Glucose (UA) Neg mg/dL (Negative) 06/13/20 13:07 Urine Ketones Neg mg/dL (Negative) 06/13/20 13:07 Urine Blood Mod (Negative) 06/13/20 13:07 Urine Nitrite Neg (Negative) 06/13/20 13:07 Urine Bilirubin Neg (Negative) 06/13/20 13:07 Urine Urobilinogen 2.0 mg/dL (<2.0) 06/13/20 13:07 Ur Leukocyte Esterase Sm (Negative) 06/13/20 13:07 Urine WBC (Auto) 66.0 /HPF (0.0-6.0) H 06/13/20 13:07 Urine RBC (Auto) 69.0 /HPF (0.0-6.0) 06/13/20 13:07 U Epithel Cells (Auto) 6.0 /HPF (0-13.0) 06/13/20 13:07 Urine Bacteria (Auto) 1+ /HPF (Negative) 06/13/20 13:07 Urine Mucus 2+ /HPF 06/13/20 13:07 Microbiology: Microbiology 06/13/20 14:01 Peripheral/Venous Blood Culture - Preliminary NO GROWTH AFTER 72 HOURS 06/13/20 14:01 Peripheral/Venous Blood Culture - Preliminary NO GROWTH AFTER 72 HOURS 06/13/20 13:07 Urine,Clean Catch Urine Culture - Final Escherichia Coli Araujo/IV: Voiding Method Toilet IV Catheter Type [Left INT / Saline Lock Antecubital] Active Medications - Current Medications Current Medications: Generic Name Dose Route Start Last Admin Trade Name Freq PRN Reason Stop Dose Admin Acetaminophen 650 mg 06/13/20 21:26 Acetaminophen 325 Mg Tab PO Q4H PRN Pain MILD(1-3)/Fever >100.5/GASPAR Famotidine 20 mg 06/15/20 22:00 06/16/20 09:52 Famotidine 20 Mg Tab PO 20 mg BID SANGEETA Administration Hydromorphone HCl 0.5 mg 06/15/20 15:19 06/16/20 14:26 Hydromorphone 1 Mg/1 Ml Inj IV 0.5 mg Q6H PRN Administration Pain , Severe (7-10) Sodium Chloride 1,000 mls @ 75 mls/hr 06/13/20 21:30 06/16/20 02:04 Nacl 0.9% 1000 Ml IV 75 mls/hr DIRECT SANGEETA Administration Ceftriaxone Sodium 2 gm in 100 mls @ 200 mls/hr 06/14/20 10:00 06/16/20 11:41 Rocephin/Ns 2 Gm/100 Ml IV 200 mls/hr Q24HR SANGEETA Administration Protocol Metoclopramide HCl 10 mg 06/13/20 21:26 Metoclopramide 10 Mg/2 Ml Inj IV Q6H PRN Nausea And Vomiting Ondansetron HCl 4 mg 06/13/20 21:26 06/15/20 10:07 Ondansetron 4 Mg/2 Ml Inj IV 4 mg Q3H PRN Administration Nausea And Vomiting Oxycodone/Acetaminophen 1 tab 06/13/20 21:26 06/15/20 15:35 Oxycodone /Acetaminophen 5-325mg Tab PO 1 tab Q6H PRN Administration Pain, Moderate (4-6) Sodium Chloride 10 ml 06/13/20 22:00 06/16/20 09:51 Sodium Chloride 0.9% 10 Ml Flush Syringe IV 10 ml BID SANGEETA Administration Sodium Chloride 10 ml 06/13/20 21:26 Sodium Chloride 0.9% 10 Ml Flush Syringe IV PRN PRN LINE FLUSH Tramadol HCl 50 mg 06/13/20 21:22 Tramadol 50 Mg Tab PO Q4HR PRN Pain, Moderate (4-6)
[2020-06-16] MEDS ORDERED: HYDROmorphone 1 MG/1 ML INJ IV PRN (18:00)
[2020-06-16] MEDS ORDERED: cefTRIAXone/NS 1 GM/50 ML 1 GM/50 ML BAG IV SCH (18:00)
[2020-06-17] MEDS: oxyCODONE /ACETAMINOPHEN 5-325MG TAB PO PRN (03:57)
--- NOTE | 2020-06-17 07:53 | Discharge Summary ---
Providers - Providers Date of Admission: 06/14/20 12:00 Date of discharge: 06/17/20 Attending physician: NILESH CARDOSO 06/16/20 10:45 Consult to Physician [CONS] Routine Comment: Consulting Provider: BRICE KITCHEN Physician Instructions: Reason For Exam: Sepsis due to bilateral pyelonephritis Primary care physician: [employer] Hospitalization Condition: Serious Disposition: DC-30 STILL A PATIENT Core Measure Documentation - Palliative Care Palliative Care/ Comfort Measures: Not Applicable - Core Measures Any of the following diagnoses?: none Exam - Constitutional Vitals: Temp Pulse Resp BP Pulse Ox 98.1 F 53 L 18 112/72 100 06/17/20 04:04 06/17/20 04:04 06/17/20 04:04 06/17/20 04:04 06/17/20 04:04 General appearance: Present: no acute distress, well-nourished - EENT Eyes: Present: PERRL, EOM intact - Neck Neck: Present: supple, normal ROM - Respiratory Respiratory effort: normal Respiratory: negative: diminished, rales, rhonchi, wheezing - Cardiovascular Rhythm: regular Heart Sounds: Present: S1 & S2 - Extremities Extremities: no ischemia, No edema - Abdominal General gastrointestinal: Present: soft, non-tender, non-distended, normal bowel sounds - Integumentary Integumentary: Present: clear, warm - Musculoskeletal Musculoskeletal: strength equal bilaterally - Psychiatric Psychiatric: appropriate mood/affect, cooperative - Neurologic Neurologic: CNII-XII intact, moves all extremities Plan Activity: no restrictions Diet: regular Additional Instructions: Plenty of oral fluids. If you have worsening symptoms contact MD or go to emergency room. Advise smoking cessation, nicotine patch as needed Prescriptions: Nicotine [Habitrol] 14 mg TD DAILY #30 patch cephALEXin [Keflex] 500 mg PO Q6H #40 cap Ketorolac [Toradol] 10 mg PO Q8H PRN #20 tablet PRN Reason: Pain
[2020-06-17 08:09] VITALS: BP 121/74
[2020-06-17] MEDS ORDERED: cefTRIAXone/NS 1 GM/50 ML 1 GM/50 ML BAG IV SCH (10:00)
== END 2020-06-17 10:14 | disposition home or self-care (01) | DRG 872 ==
LOC: ED 11:27 → 3B 14:35 → OBSVTOIN 06-14 12:00
PROVIDERS: ADMIT Internal Medicine; ATTEND Internal Medicine
DX: A41.51 Sepsis due to Escherichia coli [E. coli] (principal); N10 Acute pyelonephritis; E87.1 Hypo-osmolality and hyponatremia; R65.10 Systemic inflammatory response syndrome (SIRS) of non-infectious origin without acute organ dysfunction; F17.200 Nicotine dependence, unspecified, uncomplicated; Z79.899 Other long term (current) drug therapy; Z71.6 Tobacco abuse counseling; Z91.018 Allergy to other foods
CPT/HCPCS: 36415; 74177; 80048; 80053; 81001; 82140; 83690; 84703; 85007; 85025; 87040; 87076; 87086; 87186; 96365; 96375; G0378; J0696; J1170; J2270; J2405; J7030; Q0162; Q9967